=== PATIENT | male | born 1930 | race Caucasian/White ===

== ENCOUNTER 2018-02-15 13:02 | Emergency (ER) | payer MEDICARE, OTHER ==
--- NOTE | 2018-02-15 13:57 | Diagnostic Imaging Report ---
KADEEM WHALEN [facility] [id number] [facility] [address] [place] [address]. [id number] Report Submission Date: Feb 15, 2018 1:52:14 PM CDT Patient Study Name: STAS MARTINEZ Date: Feb 15, 2018 1:26:42 PM CDT Modality Type: CT\SR Gender: M Description: CT BRAIN W/O CONTRAST : 32 Institution: [facility] Physician: KADEEM WHALEN Head CT without contrast History: Sudden onset of head, jaw and neck pain Technique: Axial images were obtained from the skull base to the vertex without IV contrast. Findings: The ventricular system, basilar cisterns and cortical sulci are globally prominent compatible with age related cortical volume loss. There is no positive mass effect or intra/extraaxial hemorrhage. There is an abnormal lucency transecting the anterior arch of C1. This finding is consistent with an age indeterminate but potentially acute fracture involving the anterior arch of C1. The fragments are distracted from one another by approximately 4 mm. The atlantodental interval is completely lost with the dens abutting the anterior arch of C1. The calvarium is intact. Paranasal sinuses and mastoid air cells are clear. Impression: Age related cortical volume loss. No acute intracranial abnormality. There is an age indeterminate but potentially acute fracture completely transecting the anterior arch of C1. The atlantodental interval is completely lost with the dens abutting the transected anterior C1 arch. Electronically signed on Feb 15, 2018 1:52:14 PM CDT by: Anel GOLDBERG
--- NOTE | 2018-02-15 14:28 | Diagnostic Imaging Report ---
KADEEM WHALEN [facility] [address] [facility] [address] [place] [address]. [address] Report Submission Date: Feb 15, 2018 2:27:08 PM CDT Patient Study Name: STAS MARTINEZ Date: Feb 15, 2018 1:29:00 PM CDT Modality Type: CT\SR Gender: M Description: CT NECK SOFT TISSUE W/O : 32 Institution: [facility] Physician: KADEEM WHALEN CT soft tissue neck with contrast History: Sudden onset of neck, jaw and hand pain Technique: Helically acquired images were obtained through the soft tissues of the neck. The nasopharynx and oropharynx are unremarkable. Parapharyngeal spaces are appropriately fatty. There is considerable beam hardening artifact associated with dental amalgam. The epiglottis, vallecula, piriform sinuses, true and false cords and the thyroid gland are unremarkable. No lymphadenopathy is identified within the neck. Parotid and submandibular glands are normal. Multilevel degenerative findings of the cervical spine are present. There is multilevel facet arthropathy and multilevel uncovertebral joint hypertrophy. However, there is an abnormal lucency transecting the anterior arch of C1. The margins are quite sharp. There is no callus formation. The atlantodental interval is lost with the dens abutting the transected area. These findings are consistent with a mildly distracted fracture involving the anterior C1 arch, age indeterminate but potentially acute. A congenital cleft is less likely. There is either soft tissue swelling or perhaps pannus formation surrounding the dens. Lung apices are clear. Impression: Abnormal lucency transects the anterior arch of C1. These findings are most consistent with a mildly distracted fracture involving the into C1 arch, age indeterminate but potentially acute. A congenital cleft this felt less likely given the very sharp margins of the defect. There is either soft tissue swelling or perhaps pannus formation surrounding the dens. Degenerative findings throughout the cervical spine, most pronounced at the lower cervical spine. These findings were personally discussed with the emergency physician on February at 1415. Electronically signed on Feb 15, 2018 2:27:08 PM CDT by: Anel GOLDBERG
--- NOTE | 2018-02-15 14:35 | ED Physician Documentation ---
General Adult - HISTORIAN Historian: patient, other (KEVIN Robins) - HPI Chief Complaint: General Adult Further Comments: yes (Call from Jacek BROWN, patient sent in for CT soft tissue neck and brain for complaints of headache and left jaw pain. CT revealed C1 arch fracture. C-Collar placed on patient, moved to ER stretcher using spinal percautions. Patient denies any falls or trauma. Son is unaware of any recent fall. Father moved into assisted living recently.) - ROS CONST: recent illness (chronic sinusitis) EYES/ENT: nasal congestion CVS/RESP: none GI/: none MS/SKIN/LYMPH: none NEURO/PSYCH: denies: headache, fainting, dizziness, tingling, numbness, difficulty walking, difficulty with speech, anxiety, depression, other - PAST HX Past History: hypertension, other (BPH, Prostate CA, TEJON, HLD, osteoporosis, asthma) Surgeries/Procedures: cholecystectomy Allergies/Adverse Reactions: Allergies Allergy/AdvReac Type Severity Reaction Status Date / Time No Known Allergies Allergy Verified 02/15/18 14:53 Home Medications: Ambulatory Orders Medication Instructions Recorded Fluticasone Propionate [Flonase 9.9 ml NS 02/15/18 Allergy Relief] Losartan Potassium [Cozaar] 100 mg PO QDAY 02/15/18 Sertraline HCl [Zoloft] 50 mg PO DAILY 02/15/18 - SOCIAL HX Smoking History: non-smoker - FAMILY HX Family History: No - VITAL SIGNS Vital Signs: Vital Signs Temp Pulse Resp BP Pulse Ox 107/54 01/19/13 10:14 - REVIEWED ASSESSMENTS Nursing Assessment Reviewed: Yes Vitals Reviewed: Yes Progress - Progress Progress: Son at bedside, updated on CT results. Explained spinal precautions and need to transfer patient to higher level of care. Call from radiology Jeffrey Tovar; reports acute new fracture with sharp edges. Updated patient's son; recommend consult with neuro/spine surgeon. 1515 Call to [facility] for consult. 1545 Call returned from [place] and Dr Ramirez. Reviewed CT head and neck reports and lab. Recommended discharge and follow up tomorrow. [address] Cook, discussed case and reports. Will add dedicated CT c- spine, consult [facility] for 2nd opinion and patient safety. Radiologist reports cannot exclude acute fracture; no mention of unstable fracture of spinal cord compression 1640 Call to 2nd opinion. Reviewed all CTs and C-spine CT with Dr Tovar. No recommendations, "someone needs to do what is right for the patient and that isn't going to be me." 1700 Patient lives in assisted living which will not allow him to return with c- collar; requiring IV pain medication for pain control. Fall risk. Call to Dr Cook. Will admit patient to myself at [facility] and Dr Cook to discharge tomorrow for appointment with Dr Ramirez. Updated Son on plan of care. Agrees with admission since patient is not accepted at [facility] or [facility]. Will keep in C-collar. - EKG/XRAY/CT EKG: rhythm (SR, rate 62; no acute changes) ED Results Lab/Radiology - Radiology Radiology Impressions: CT soft tissue neck with contrast : History: Sudden onset of neck, jaw and hand pain Technique: Helically acquired images were obtained through the soft tissues of the neck. The nasopharynx and oropharynx are unremarkable. Parapharyngeal spaces are appropriately fatty. There is considerable beam hardening artifact associated with dental amalgam. The epiglottis, vallecula, piriform sinuses, true and false cords and the thyroid gland are unremarkable. No lymphadenopathy is identified within the neck. Parotid and submandibular glands are normal. Multilevel degenerative findings of the cervical spine are present. There is multilevel facet arthropathy and multilevel uncovertebral joint hypertrophy. However, there is an abnormal lucency transecting the anterior arch of C1. The margins are quite sharp. There is no callus formation. The atlantodental interval is lost with the dens abutting the transected area. These findings are consistent with a mildly distracted fracture involving the anterior C1 arch, age indeterminate but potentially acute. A congenital cleft is less likely. There is either soft tissue swelling or perhaps pannus formation surrounding the dens. Lung apices are clear. Impression: Abnormal lucency transects the anterior arch of C1. These findings are most consistent with a mildly distracted fracture involving the into C1 arch, age indeterminate but potentially acute. A congenital cleft this felt less likely given the very sharp margins of the defect. There is either soft tissue swelling or perhaps pannus formation surrounding the dens. Degenerative findings throughout the cervical spine, most pronounced at the lower cervical spine. These findings were personally discussed with the emergency physician on February 15, 2018 at 1415. Electronically signed on Feb 15, 2018 2:27:08 PM CDT by: Anel Tovar Head CT without contrast History: Sudden onset of head, jaw and neck pain Technique: Axial images were obtained from the skull base to the vertex without IV contrast. Findings: The ventricular system, basilar cisterns and cortical sulci are globally prominent compatible with age related cortical volume loss. There is no positive mass effect or intra/extraaxial hemorrhage. There is an abnormal lucency transecting the anterior arch of C1. This finding is consistent with an age indeterminate but potentially acute fracture involving the anterior arch of C1. The fragments are distracted from one another by approximately 4 mm. The atlantodental interval is completely lost with the dens abutting the anterior arch of C1. The calvarium is intact. Paranasal sinuses and mastoid air cells are clear. Impression: Age related cortical volume loss. No acute intracranial abnormality. There is an age indeterminate but potentially acute fracture completely transecting the anterior arch of C1. The atlantodental interval is completely lost with the dens abutting the transected anterior C1 arch. Electronically signed on Feb 15, 2018 1:52:14 PM CDT by: Anel Tovar - Orders Orders: ED Orders Category Date Time Status Continuous EKG monitoring Q30M Care 02/15/18 14:28 Ordered Continuous Pulse Oximetry Q30M Care 02/15/18 14:[address] IV Lock 1T Care 02/15/18 14:[address] BRAIN W/O CONTRAST Routine Exams 02/15/18 13:[address] C-SPINE W/O CONTRAST Stat Exams 02/15/[address] NECK SOFT TISSUE W/O CON Routine Exams 02/15/18 13:20 Taken CBC/PLATELET/DIFF Stat Lab 02/15/18 14:28 Ordered CMP Stat Lab 02/15/18 14:28 Ordered UA W/MICRO IF INDICATED Stat Lab 02/15/18 14:29 Ordered EKG WITH COMPARISON Stat Ther 02/15/18 14:28 Ordered General Adult Physical Exam - PHYSICAL EXAM GENERAL APPEARANCE: no distress EENT: eye inspection normal, ENT inspection normal, pharynx normal, no signs of dehydration, SUNSHINE RESPIRATORY: no resp distress, chest non-tender, breath sounds normal CVS: reg rate & rhythm, heart sounds normal, equal pulses, no murmur, no gallop, PMI nml, no JVD, no friction rub, 24 ABDOMEN: soft, no organomegaly, normal bowel sounds, no abdominal bruit, no distension BACK: no CVA tenderness SKIN: warm/dry, pallor EXTREMITIES: non-tender, normal range of motion, no evidence of injury, no edema, other (no abrasions or ecchymosis noted) NEURO: oriented X3, sensation nml, mood/affect nml, other (gait not assessed due to C1 fracture) Discharge Clincal Impression: Cervical pain (neck), Pain in lower jaw C1 cervical fracture Qualifiers: Encounter type: initial encounter Fracture type: closed Fracture morphology: other fracture Fracture alignment: nondisplaced Qualified Code(s): S12.091A - Other nondisplaced fracture of first cervical vertebra, initial encounter for closed fracture Condition: Stable Disposition: 09 ADMITTED INPATIENT Decision to Admit: [id number] Decision Time: 17:30
[2018-02-15 14:59] LABS: BASOPHILS % 0.5 (0.0-1.5); EOSINOPHILS % 1.9 % (0.0-6.8); MEAN CORPUSCULAR HEMOGLOBIN 28.9 pg (28.0-34.0); MEAN CORPUSCULAR VOLUME 82.3 fl (80.0-100.0); MONOCYTES % 5.7 % (0.0-11.0); NEUTROPHILS # 3.4 # k/uL (1.4-7.7)
[2018-02-15] MEDS ORDERED: fentaNYL CITRATE/PF 100 MCG/ 2ML AMP IVP ONE ×2 (15:01→15:30)
[2018-02-15 15:02] LABS: eGFR (Non-African) > 60
--- NOTE | 2018-02-15 16:40 | Diagnostic Imaging Report ---
EMILI STEWART (STREAM CONTROL OFFICER) - ER [facility] [address] [address] Report Submission Date: Feb 15, 2018 4:34:11 PM CDT Patient Study Name: STAS MARTINEZ Date: Feb 15, 2018 4:02:58 PM CDT Modality Type: CT Gender: M Description: CT C-SPINE W/O CONTRAS : 32 Institution: [facility] Physician: EMILI STEWART (AIXA) - ER CT cervical spine without contrast History: Sudden onset of headaches and jaw pain. Abnormality of the C1 arch noted on the patient's head CT Technique: Helically acquired images were obtained through the cervical spine. Sagittal and coronal reconstructions were performed. There is an abnormal sharply marginated lucency extending through the anterior arch of C1. There is an estimated 4 mm separation between the right and left components of the C1 arch. This finding may represent a congenital diastatic cleft but an acute fracture would not be excluded especially given the patient' s abrupt on onset of symptoms. There is narrowing of the atlantodental interval with the dens lying directly adjacent to the transverse lucency. C2/3: There is no central stenosis or foraminal narrowing. There is mild facet arthropathy. C3/4: There is severe left and mild right facet arthropathy. There is mild right and moderate left foraminal narrowing. C4/5: There is severe left facet arthropathy with moderate to severe left foraminal narrowing. C5/6: There is no central stenosis or foraminal narrowing. C6/7: Secondary to right-sided uncovertebral joint hypertrophy, there is moderate right foraminal narrowing. The left foramen is patent. There is a posterior disc and osteophyte complex without significant central stenosis. C7/T1: Unremarkable Lung apices are clear. The dens is intact. The lateral masses of C1 and C2 are aligned. There is severe disc space narrowing at C5/6, C6/7 and C7/T1. Impression: There is an abnormal lucency traversing the midline anterior arch of C1. The margins are sharp. However, better demonstrated on bone algorithm windows, there does appear to be some cortication of the bone along the margins of the cleft. 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 However, the possibility of an acute fracture would not be excluded especially given the abrupt onset of the patient's symptoms. Otherwise, please see body of report with regard to multilevel degenerative findings. These findings were discussed with Emili Stewart in the emergency room on February 15, 2018 at 1630. Electronically signed on Feb 15, 2018 4:34:11 PM CDT by: Anel GOLDBERG
[2018-02-15] MEDS ORDERED: KETOROLAC TROMETHAMINE 30 MG/1ML VIAL IVP ONE (18:05)
[2018-02-15] MEDS ORDERED: ACETAMINOPHEN 500 MG TABLET PO PRN (18:06)
[2018-02-15] MEDS ORDERED: fentaNYL CITRATE/PF 100 MCG/ 2ML AMP IVP PRN (18:07)
[2018-02-15] MEDS ORDERED: KETOROLAC TROMETHAMINE 30 MG/1ML VIAL ONE (18:11)
[2018-02-15 20:21] VITALS: BMI 27.3
[2018-02-15] MEDS ORDERED: ACETAMINOPHEN 500 MG TABLET ONE (20:37)
[2018-02-15] MEDS ORDERED: SERTRALINE HCL 50 MG TABLET ONE (22:57)
[2018-02-15] MEDS ORDERED: LOSARTAN POTASSIUM 50 MG TABLET PO ONE (22:57)
[2018-02-16] MEDS ORDERED: fentaNYL CITRATE/PF 100 MCG/ 2ML AMP ONE (00:45)
[2018-02-16 08:46] LABS: APPEARANCE,URINE CLEAR (CLEAR); COLOR,URINE YELLOW (YELLOW); OCCULT BLOOD,URINE 1+ (NEGATIVE)
[2018-02-16] MEDS ORDERED: SERTRALINE HCL 50 MG TABLET PO SCH (09:00)
[2018-02-16] MEDS ORDERED: LOSARTAN POTASSIUM 50 MG TABLET PO SCH (09:00)
[2018-02-17 00:33] VITALS: BP 107/54
--- NOTE | 2018-02-17 00:34 | Discharge Summary ---
Discharge Summary - Discharge Sumary History of Present Illness: 87yo white male who fell and was seen by his PCP and advised to get a CT scan of head and neck. Patient was subsequently seen in the ED for a apparently new C1 fracture. Patient was placed in c collar. was consulted and he advised that patient just needed to have a soft c collar place. Patient has some dementia and it was not sure if he would leave the C collar on. The assisted living place would not accept patient back with c collar and he was admitted for observation. Condition at Discharge: Stable Home Medications: Ambulatory Orders Medication Instructions Recorded Fluticasone Propionate [Flonase 9.9 ml NS 02/15/18 Allergy Relief] Losartan Potassium [Cozaar] 100 mg PO QDAY 02/15/18 Sertraline HCl [Zoloft] 50 mg PO DAILY 02/15/18 Acetaminophen [Tylenol Extra 1,000 mg PO Q4H PRN tablet 02/16/18 Strength] Tramadol HCl [Ultram] 50 mg PO Q6 PRN #20 tablet 02/16/18 Consultations this Visit: None Procedures this Visit: None Allergies/Adverse Reactions: Allergies Allergy/AdvReac Type Severity Reaction Status Date / Time No Known Allergies Allergy Verified 02/15/18 14:53 Discharge Summary: Patient was continued with C collar. Patient did not voice any complaints during his stay. He did not request any pain medication. Patient's neurological status remained stable with no deficits. Has did remain confused some. Has dementia and it appeared to stay at baseline. Arrangements had been made to follow-up with Dr Ramirez. Patient was discharged in stable condition. c - Final Diagnosis (1) C1 cervical fracture Problems: Continue with C collar (2) Dementia Problems: stable
== END 2018-02-16 13:15 | disposition home or self-care (01) ==
LOC: RAD 13:02 → ED 13:02 → SOUTH 17:35
PROVIDERS: ADMIT Emergency Medicine; ATTEND Emergency Medicine
DX: S12.091A Other nondisplaced fracture of first cervical vertebra, initial encounter for closed fracture (principal); F03.90 Unspecified dementia, unspecified severity, without behavioral disturbance, psychotic disturbance, mood disturbance, and anxiety; X58.XXXA Exposure to other specified factors, initial encounter; Y92.9 Unspecified place or not applicable; Y93.9 Activity, unspecified; Y99.9 Unspecified external cause status
CPT/HCPCS: 51702; 70450; 70490; 72125; 80053; 81002; 85025; 93005; G0378; J3010; 96374; 96376; 99217; S1016